=== PATIENT | female | born 1960 | race Caucasian/White ===

== ENCOUNTER → 2025-03-18 08:51 | Outpatient (REF) | payer OTHER, SELFPAY | LOC: RST 08:51 | PROVIDERS: ATTENDING PHYSICIAN Nurse Practitioner Family | DX: R13.10 Dysphagia, unspecified (principal) | CPT/HCPCS: 74230; 92611 ==

== ENCOUNTER → 2025-04-27 13:45 | Outpatient (REF) | payer OTHER, SELFPAY | LOC: HWRAD 13:45 | PROVIDERS: ATTENDING PHYSICIAN Nurse Practitioner Family | DX: M85.80 Other specified disorders of bone density and structure, unspecified site (principal) | CPT/HCPCS: 77080 ==

== ENCOUNTER 2025-05-23 06:17 | Day surgery (SDC) | payer OTHER, SELFPAY | END 2025-05-23 11:53 | disposition home or self-care (01) | LOC: GI 06:17 | PROVIDERS: ATTENDING PHYSICIAN Internal Medicine Gastroenterology; FAMILY PHYSICIAN Nurse Practitioner Family | DX: Z12.11 Encounter for screening for malignant neoplasm of colon (principal); K63.5 Polyp of colon; K64.8 Other hemorrhoids; Z86.0100 Personal history of colon polyps, unspecified | CPT/HCPCS: 45380; 88305 ==

== ENCOUNTER 2025-06-17 19:00 | Emergency (ER) | payer OTHER, SELFPAY ==
[2025-06-17 19:05] VITALS: BP 108/79
[2025-06-17 20:55] VITALS: BP 151/81
--- NOTE | 2025-06-17 22:52 | ED.GENMED ---
History of Present Illness
<Kera Perez DO - Last Filed: 06/17/25 23:30>
General
Chief Complaint: Swallowing Problem
Time Seen by Provider: 06/17/25 21:03
History of Present Illness
History of Present Illness:
64-year-old female with prior history of swallowing issues presenting to the emergency department for concern of impacted food bolus. Patient reports prior to arrival she was eating bains and now feels like it stuck in her throat. She has been
unable to eat or drink after. Notes several episodes of vomiting. She is able to handle her secretions. Denies chest pain or difficulty breathing. No acute medical complaints
Phy Exam
<Kera Perez DO - Last Filed: 06/17/25 23:30>
Physical Exam
Physical Exam:
General: Well-appearing, no clinical signs of dehydration, nontoxic and in no acute distress
HEENT: protecting airway, handling secretions
Neck: appears supple
CV: Normal heart rate, regular rhythm
Resp: No accessory muscle use, no increased work of breathing
Abd: No distention
Extremities: No deformities, no swelling
Neuro: alert, no focal neurologic deficit
: deferred
Rectal: deferred
Psych: Normal affect
Skin: Intact
Course
<Kera Perez DO - Last Filed: 06/17/25 23:30>
Orders/Labs/Results
Orders:
Orders
06/17/25 22:13
Glucagon [GlucaGen] 1 mg IM NOW STA
06/17/25 23:04
Glucagon [GlucaGen] 1 mg IM NOW STA
06/17/25 23:36
Consult Gastroenterology [GASTROINTESTINAL CONSULT] Urgent
Consulting Provider: Jen Gomez
Was physician already notified: Yes
Reason for consult: food impaction
06/17/25 23:41
0.9% Sodium Chloride 1000 ml [Nss] 1,000 ml IV BOLUS
Vital Signs
Initial and Last Documented VS:
Initial Vital Signs
Temp Pulse Resp BP Pulse Ox
98.0 F 87 18 108/79 98
06/17/25 19:05 06/17/25 19:05 06/17/25 19:05 06/17/25 19:05 06/17/25 19:05
Last Documented Vital Signs
Temp Pulse Resp BP Pulse Ox
98.1 F 95 18 126/70 97
06/18/25 05:27 06/18/25 05:27 06/17/25 19:05 06/18/25 05:20 06/18/25 05:20
<Ivory Duran DO - Last Filed: 06/18/25 06:28>
Orders/Labs/Results
Orders:
Orders
06/17/25 22:13
Glucagon [GlucaGen] 1 mg IM NOW STA
06/17/25 23:04
Glucagon [GlucaGen] 1 mg IM NOW STA
06/17/25 23:36
Consult Gastroenterology [GASTROINTESTINAL CONSULT] Urgent
Consulting Provider: Jen Gomez
Was physician already notified: Yes
Reason for consult: food impaction
06/17/25 23:41
0.9% Sodium Chloride 1000 ml [Nss] 1,000 ml IV BOLUS
Vital Signs
Initial and Last Documented VS:
Initial Vital Signs
Temp Pulse Resp BP Pulse Ox
98.0 F 87 18 108/79 98
06/17/25 19:05 06/17/25 19:05 06/17/25 19:05 06/17/25 19:05 06/17/25 19:05
Last Documented Vital Signs
Temp Pulse Resp BP Pulse Ox
98.1 F 95 18 126/70 97
06/18/25 05:27 06/18/25 05:27 06/17/25 19:05 06/18/25 05:20 06/18/25 05:20
<DO Janis Garcia Last Filed: 06/17/25 23:30>
MDM/Problems Addressed
MDM/Problems Addressed:
64-year-old female presenting for concern of impacted food bolus. Vital signs on arrival are normal.
On exam, patient is resting comfortably, handling secretions, however unable to swallow any liquids. Notes that she immediately starts to vomit. Concern for impacted food bolus. Will administer glucagon and alert GI.
22:30 - In discussion with GI, recommending 2 doses of IM glucagon, and enough unable to persistently tolerate fluids, will come in in the morning for endoscopy
23:30 -patient notes that she still feels like it stuck. Will monitor in the emergency department until GI able to come in for endoscopy
<DO Janis Garcia Last Filed: 06/17/25 23:30>
*Pulse Oximetry
SaO2: 90
Oxygen Mode of Delivery: Room air
Patient hypoxic: no
*Critical Care Note
Total Time (30-74mins, 75-104mins- exclusive of procedures): Not Applicable
<Ivory Duran DO - Last Filed: 06/18/25 06:28>
Update Note
Update Note:
06:20
Patient reports complete relief of lower chest/upper epigastric region. No further vomiting and is now tolerating sips of water.
Clearly esophageal food impaction has resolved.
Tolerating oral fluids.
She is eager to be discharged to home.
She tends to chronically avoid meat. She ate bains last night which was culprit for her distal esophageal food bolus.
She does follow with GI, previously Dr. Lopez, now Dr. Gomez. She reports undergoing unremarkable upper endoscopy 2021 when more recently unremarkable barium swallow March of this year.
Will place on a short course of daily Protonix with plan for follow-up with GI on an outpatient basis.
ED Attending Note
<DO Janis Garcia Last Filed: 06/17/25 23:30>
-
Portions of this chart may have been created with voice recognition software.� Occasional wrong word or��sound alike� substitutions may have occurred due to the inherent limitations of voice recognition software.
Discharge Plan
Departure
Patient Disposition: Home (Routine Discharge)
Date of Disposition: 06/18/25
Time of Disposition: 06:15
Patient with high blood pressure during this ER visit?: No
Condition: Good
Discharge Problem:
Food impaction of esophagus
Instructions: Food Obstruction
Prescriptions:
New
pantoprazole [Protonix] 40 mg tablet,delayed release (DR/EC)
40 mg PO DAILY Qty: 30 0RF
No Action
montelukast 10 MG tablet
10 mg PO QPM
citalopram 10 MG tablet
10 mg PO DAILY
lorazepam 0.5 MG tablet
0.5 mg PO DAILY PRN (Reason: anxiety)
Referrals:
Chidi Rodriguez CRNP [Family Provider, Family Practice]
Jen Gomez MD [Active, Gastroenterology] - Call in 1-3 days for appt
Interventions
Interventions:
*Risk Screen - Suicide Last Done: 06/17/25 19:05
*General Assessment Last Done: 06/17/25 19:05
*Neglect/Abuse Screening Last Done: 06/17/25 19:05
*ED COVID-19 Vaccine History Last Done: 06/17/25 20:53
*ED Influenza Vaccine History Last Done: 06/17/25 20:53
[facility] Fall Risk Assessment Tool Last Done: 06/17/25 20:53
ED-EENT Assessment Last Done: 06/17/25 20:53
YE-Ovjznd-Uewtyngtkt Assessment Last Done: 06/17/25 20:53
ED- Pulmonary Assessment Last Done: 06/17/25 20:53
ED- Neurological Assessment Last Done: 06/17/25 20:53
ED Swallowing Screen Last Done: 06/18/25 01:28
Discharge Date and Time
Print Language: [id number]
[2025-06-17 23:03] VITALS: BP 143/78
[2025-06-18 00:03] VITALS: BP 107/51
[2025-06-18] MEDS: NSS 1000 IV (00:03)
[2025-06-18 01:49] VITALS: BP 126/67
[2025-06-18 05:20] VITALS: BP 126/70
== END 2025-06-18 07:09 | disposition home or self-care (01) ==
LOC: EMR 19:00
PROVIDERS: CONSULT PHYSICIAN Internal Medicine Gastroenterology; EMERGENCY PHYSICIAN Student in an Organized Health Care Education/Training Program; FAMILY PHYSICIAN Nurse Practitioner Family
DX: T18.128A Food in esophagus causing other injury, initial encounter (principal); W44.F3XA Food entering into or through a natural orifice, initial encounter
CPT/HCPCS: 96372; 96360; 99284; J1610